=== PATIENT | female | born 1950 | race Caucasian/White ===

== ENCOUNTER → 2019-01-22 | Outpatient (CLI) | payer OTHER ==
[~2019-01-22] MED LIST: BENZ.5; BUPR150T2; CLOZ100; CONEST1.25; HYDACE10B PO; NAPR500 PO; VENL75ER
== END | disposition home or self-care (01) ==
LOC: LAB SHORT 07:45 → PLD 07:45
DX: B35.1 Tinea unguium (principal); L60.2 Onychogryphosis
CPT/HCPCS: 88305; 88312

== ENCOUNTER 2020-11-26 10:21 | Inpatient (IN) | payer OTHER, MEDICARE, SELFPAY ==
[~2020-11-26] VITALS: Ht 157.5 cm; Wt 66.7 kg
[~2020-11-26 10:21] MED LIST changes: -CONEST1.25
[2020-11-26 11:15] LABS: Hematocrit 35.3 % (33.0-51.0); Mean Corpuscular HGB 27.8 pg (26.0-34.0); Mean Corpuscular Volume 82 fL (80-100); Mean Platelet Volume 9.4 fL (9.1-12.4); Platelet Count 362 K/mm3 (150-400); RDW Coefficient Variation 13.8 % (11.7-14.2); RDW Standard Deviation 41.1 fL (35.1-46.3); Red Blood Cell Count 4.31 M/mm3 (3.80-5.20); White Blood Cell Count 6.23 K/mm3 (4.00-11.30)
[2020-11-26 11:32] LABS: Albumin, Blood 2.8 g/dL (3.4-5.0); Albumin/Globulin Ratio 0.7 (0.8-1.8); Bilirubin, Total 0.7 mg/dL (0.1-1.0); Bun/Creatinine Ratio 38.9 (12.0-20.0); Creatinine, Blood 1.44 mg/dL (0.40-1.00); Globulin, Blood 4.2 g/dL (2.2-4.0); Potassium, Blood 3.4 mmol/L (3.5-5.5)
[2020-11-26 11:53] LABS: BAND PERCENT MAN 44 % (0-8); BASOPHILS PERCENT MAN 0 % (0-2); EOSINOPHILS PERCENT MAN 0 % (0-6); LYMPHOCYTES PERCENT MAN 9 % (21-46); METAMYELOCYTE PERCENT MAN 2 % (0-0); MONOCYTES PERCENT MAN 2 % (4-13); MYELOCYTE PERCENT MAN 1 % (0-0); SEG NEUTROPHILS PERCENT MAN 42 % (41-73); TOTAL CELLS COUNTED 100
[2020-11-26 12:17] LABS: Source, Urine Clean Catch
[2020-11-26 12:19] LABS: Appearance, Urine Clear (Clear); Bilirubin, Urine Neg (Neg); Blood, Urine 1+ (Neg); Color, Urine Yellow (P-Yellow); Glucose Qualitative, Urine Neg (Neg); Ketones, Urine Neg (Neg); Leukocyte Esterase, Urine 1+ (Neg); Nitrite, Urine Neg (Neg); Protein, Urine 2+ (Neg); Urobilinogen, Urine NORM (Normal)
[2020-11-26] MEDS ORDERED: ALPRAZOLAM PO (12:34)
[2020-11-26] MEDS ORDERED: DULOXETINE HCL60 M1 PO (12:34)
[2020-11-26] MEDS ORDERED: OLANZAPINE20 M1 PO (12:36)
[2020-11-26] MEDS ORDERED: CONEST.625 PO (12:36)
[2020-11-26] MEDS ORDERED: CLON.1 PO (12:37)
[2020-11-26] MEDS ORDERED: OLAN10 PO (12:38)
[2020-11-26] MEDS ORDERED: Glucophage 850850 MG PO (12:38)
[2020-11-26] MEDS ORDERED: ATORVASTATIN CA20 MG PO (12:39)
[2020-11-26] MEDS ORDERED: PIOGLITAZONE HC15 MG PO (12:39)
[2020-11-26] MEDS ORDERED: GEMFIBROZIL600 MG PO (12:40)
[2020-11-26 12:43] LABS: Red Blood Cells, Urine 0-2 /hpf (0-2)
[2020-11-26 12:44] LABS: Bacteria Many /hpf; Squamous Epithelial Cells Few /hpf (Few); Transitional Epithelial Cells Few /hpf (0-Rare)
[2020-11-26] MEDS ORDERED: XANAX0.25 MG PO (13:52)
--- NOTE | 2020-11-26 18:28 | NUR ---
PT ARRIVED TO PCU 14 VIA GURNEY FROM ED. SHE IS A/0X3, PLEASANT AND COOPERATIVE WITH CARE, IS VERY UNCOMFORTABLE, 25MCG FENTANYL GIVEN WITH GOOD RELIEF, HER SPEECH IS VERY SOFT AND RASPY, LUNGS ARE CLEAR T/O, RESP EVEN AND UNLABORED, NO COUGH NOTED, HRR, TELE IN PLACE RUNNING SR PER MONITOR, SEE STRIP, NO EDEMA NOTED, PPP+2, CAP REFILL <3SEC, VS STABLE, AFEBRILE, IV SITE TO LAC AND RFA, NORMAL SALINE INFUSING, BT NOT AUSCULTATED, ABD DISTENDEND BUT SOFT, IS TENDER TO PALP, VOIDS VIA BSC, SKIN HAS SOME BRUISING NO OPEN AREAS, POLLY, ASKED HER TO SMILE I HEARD SHE HAS A L DROOP, SHE DID, NO DROOP NOTED, BUT STATES SHE HAS BELLS PALSEY, BIODIESEL PROCESS CONTROL TECHNICIAN ARE EQUAL, FEET ARE EQUAL, JENNA, ORIENTED TO ROOM LAYOUT AND CALL SYSTEM, CALL LIGHT IN REACH.
--- NOTE | 2020-11-27 04:45 | NUR ---
SHIFT SUMMARY ASSUMED CARE OF PT AT 1900. PT IS A/OX4. HEART SOUNDS REGULAR, LUNG SOUNDS HAVE SOME FINE CRACKLES AT THE BASES. PT IS ON 2L NC FOR SUPPORT WHILE NG TUBE IS IN, SATURATIONS AROUND 90-95%. PT IS A 1P SBA TO BSC, PT IS VERY WOBBLY ON HER FEET AND NEEDS GUIDENCE. PT HAS BRUISING ALL OVER. PT C/O PAIN FROM HER NG TUBE, MEDICATED PER EMAR. NG DRAINING BROWN LIQUID, ON INTERMITEN SUCION. CALL LIGHT IN REACH, BED IN LOWEST POSTION.
[2020-11-27 05:16] LABS: Hematocrit 31.3 % (33.0-51.0); Hemoglobin 10.3 g/dL (11.5-16.0); Mean Corpuscular HGB 27.2 pg (26.0-34.0); Mean Corpuscular HGB Conc 32.9 g/dL (31.5-36.5); Mean Corpuscular Volume 83 fL (80-100); Mean Platelet Volume 9.3 fL (9.1-12.4); Platelet Count 320 K/mm3 (150-400); RDW Standard Deviation 41.4 fL (35.1-46.3); Red Blood Cell Count 3.79 M/mm3 (3.80-5.20); White Blood Cell Count 14.21 K/mm3 (4.00-11.30)
[2020-11-27 05:36] LABS: Alanine Aminotransfer (ALT/SGP 13 U/L (12-78); Albumin, Blood 2.5 g/dL (3.4-5.0); Albumin/Globulin Ratio 0.7 (0.8-1.8); Alk Phos 63 U/L (50-136); Anion Gap 13 mmol/L (6-16); Aspartate Aminotrans (AST/SGOT 16 U/L (12-37); Bilirubin, Total 0.7 mg/dL (0.1-1.0); Blood Urea Nitrogen 36 mg/dL (8-24); Bun/Creatinine Ratio 40.5 (12.0-20.0); CO2, Blood 28 mmol/L (21-32); Calcium, Blood 8.3 mg/dL (8.5-10.1); Chloride, Blood 96 mmol/L (98-108); Creatinine, Blood 0.89 mg/dL (0.40-1.00); Globulin, Blood 3.7 g/dL (2.2-4.0); Glomerular Filtration Rate >60 (60-); Glucose, Blood 82 mg/dL (70-99); Potassium, Blood 2.6 mmol/L (3.5-5.5); Sodium, Blood 137 mmol/L (136-145); Total Protein, Blood 6.2 g/dL (6.4-8.2)
[2020-11-27 05:47] LABS: BAND PERCENT MAN 27 % (0-8); BASOPHILS PERCENT MAN 0 % (0-2); EOSINOPHILS ABSOLUTE MAN 0.42 K/mm3 (0.00-0.68); EOSINOPHILS PERCENT MAN 3 % (0-6); LYMPHOCYTES ABSOLUTE MAN 0.56 K/mm3 (0.84-5.20); LYMPHOCYTES PERCENT MAN 4 % (21-46); MONOCYTES ABSOLUTE MAN 0.42 K/mm3 (0.16-1.47); MONOCYTES PERCENT MAN 3 % (4-13); NEUTROPHILS ABSOLUTE MAN 12.78 K/mm3 (1.96-9.15); SEG NEUTROPHILS PERCENT MAN 63 % (41-73); TOTAL CELLS COUNTED 100
--- NOTE | 2020-11-27 14:34 | NUR ---
THIS RN ENTERED PT'S ROOM AND NOTED THAT SHE WAS CRYING. PT STATES THAT BECAUSE SHE IS NPO AT THIS TIME, SHE CAN'T HAVE HER NORMAL MEDICATIONS, WHICH INCLUDE ALPRAZOLAM, CLONIDINE, DULOXITINE, AND OLANZAPINE. DR US CONTACTED, ORDERS RECEIVED.
--- NOTE | 2020-11-27 17:37 | NUR ---
SHIFT SUMMARY PATIENT ALERT AND ORIENTED THROUGHOUT THIS SHIFT. PATIENT IS A STANDBY ASSIST TO THE BEDSIDE COMODE. AFTER MULTIPLE ATTEMPTS AT URINATING WITH LITTLE OUTPUT A BLADDER SCAN WAS PERFORMED WITH > 999 ML OF URINE SCANNED. STRAIGHT CATH ORDERED BY DOCTOR. >900 ML URINE OUTPUT. PATIENT CONTINUES ON LOW INTERMITENT SUCTION THROUGH NG TUBE. BROWN OUTPUT THROUGH NG TUBE, 650 ML EMPTIED THIS AFTERNOON. PATIENT ANXIOUS THIS AFTERNOON, MEDICATED PER EMAR. PATIENT CURRENTLY SITTING UP IN BED WATCHING TELEVISION.
[2020-11-28 04:02] LABS: Hematocrit 31.1 % (33.0-51.0); Hemoglobin 10.1 g/dL (11.5-16.0); Mean Corpuscular HGB 27.3 pg (26.0-34.0); Mean Corpuscular HGB Conc 32.5 g/dL (31.5-36.5); Mean Corpuscular Volume 84 fL (80-100); Mean Platelet Volume 9.3 fL (9.1-12.4); Platelet Count 319 K/mm3 (150-400); RDW Coefficient Variation 14.2 % (11.7-14.2); RDW Standard Deviation 43.6 fL (35.1-46.3); White Blood Cell Count 15.83 K/mm3 (4.00-11.30)
[2020-11-28 04:21] LABS: Albumin, Blood 2.2 g/dL (3.4-5.0); Anion Gap 11 mmol/L (6-16); Blood Urea Nitrogen 23 mg/dL (8-24); Bun/Creatinine Ratio 37.1 (12.0-20.0); CO2, Blood 28 mmol/L (21-32); Calcium, Blood 8.4 mg/dL (8.5-10.1); Chloride, Blood 102 mmol/L (98-108); Creatinine, Blood 0.62 mg/dL (0.40-1.00); Glomerular Filtration Rate >60 (60-); Glucose, Blood 129 mg/dL (70-99); Phosphorus, Blood 1.2 mg/dL (2.5-4.9); Potassium, Blood 2.8 mmol/L (3.5-5.5); Sodium, Blood 141 mmol/L (136-145)
--- NOTE | 2020-11-28 04:39 | NUR ---
SHIFT SUMMARY ASSUMED CARE OF PT AT 1900. PT IS A/OX4 BUT HAS TIMES OF CONFUSION. FOR EXAMPLE PT ULLED OFF O2 T/O THE NIGHT AND ASKED MULTIPLE TIMES WHAT THE TUBE WAS THAT WAS IN HER NOSE. HEART SOUNDS TACHY, TELE SHOWS SINUS TACH. LUNG SOUNDS DIMINISHED. ABD IS SOFT BUT SLIGHTLY TENDER. NG TUBE DRAINED ABOUT 700ML THIS NIGHT OF BROWN FLUIDS. CATHETER WAS PLACED DUE TO RETENTION. CATH DRAINING DARK CLEAR URINE. CALL LIGHT IN REACH, BED IN LOWEST POSITON.
--- NOTE | 2020-11-28 11:15 | NUR ---
PT PULLED HER SHERWOOD, NO BLEEDING NOTED
--- NOTE | 2020-11-28 14:42 | NUR ---
SHERWOOD CATH FOR RETENTION WAS PULLED BY PT THIS AM AT 1115. REPLACED FOR RETENTON AT THIS TIME WITH 14Fr, 10CC BALLOON, PT TOLERATED WELL
--- NOTE | 2020-11-28 17:48 | NUR ---
PT AND SPOUSE REPORTING FLATUS AT THIS TIME
[2020-11-29 03:54] LABS: Hematocrit 30.4 % (33.0-51.0); Mean Corpuscular HGB 27.5 pg (26.0-34.0); Mean Corpuscular HGB Conc 32.9 g/dL (31.5-36.5); Mean Corpuscular Volume 84 fL (80-100); Mean Platelet Volume 9.2 fL (9.1-12.4); Platelet Count 362 K/mm3 (150-400); RDW Coefficient Variation 14.2 % (11.7-14.2); RDW Standard Deviation 43.8 fL (35.1-46.3); Red Blood Cell Count 3.63 M/mm3 (3.80-5.20); White Blood Cell Count 11.25 K/mm3 (4.00-11.30)
[2020-11-29 04:18] LABS: Albumin, Blood 2.2 g/dL (3.4-5.0); Anion Gap 7 mmol/L (6-16); Blood Urea Nitrogen 17 mg/dL (8-24); Bun/Creatinine Ratio 26.4 (12.0-20.0); CO2, Blood 36 mmol/L (21-32); Calcium, Blood 8.4 mg/dL (8.5-10.1); Chloride, Blood 103 mmol/L (98-108); Creatinine, Blood 0.64 mg/dL (0.40-1.00); Glomerular Filtration Rate >60 (60-); Glucose, Blood 184 mg/dL (70-99); Phosphorus, Blood 1.8 mg/dL (2.5-4.9); Potassium, Blood 2.5 mmol/L (3.5-5.5); Sodium, Blood 146 mmol/L (136-145)
--- NOTE | 2020-11-29 05:09 | NUR ---
SHIFT SUMMARY NO ACUTE CHANGES THIS SHIFT. PT ALERT BUT PRESENTS WITH OCCASIONAL INSTANCES OF CONFUSION. BED ALARM IN PLACE. REMAINS IN SR. REMAINS ON RA WHILE AWAKE, PLACED ON 2LNC WHILE SLEEPING. NGT REMAINS TO LIT / DARK BROWN OUTPUT NOTED. PT STATES INSTANCE OF FLATUS TONIGHT. D51/2 NS CONTINUES TO INFUSE PER EMAR. HAS DENIED ABD PAIN THIS SHIFT. ATIVAN GIVEN FOR ANXIETY, SUCCESFUL. OTHERWISE PT RESTING IN BED QUIETELY. WILL CONTINUE TO MONITOR UNTIL SHIFT CHANGE.
--- NOTE | 2020-11-29 10:29 | NUR ---
PT IN PROCEDURE W/XRAY PT IN PROCEDURE WITH X RAY THIS AM. INSTRUCTED TO NOT RECONNECT PT TO SUCTION AT THIS TIME D/T CONTRAST. PT BACK FROM IMAGING, WILL RETURN IN 1 HOUR.
--- NOTE | 2020-11-29 13:56 | NUR ---
UPDATE SPOKE WITH AKIRA FROM IMAGING. PT STILL UNABLE TO BE ATTACHED TO SUCTION D/T IMAGING TESTING. NEXT SCHEDULED XRAY IS AT 1505. PT COMOFORTABLE AT THIS TIME. REPORTS NO ABD PAIN.
--- NOTE | 2020-11-29 15:23 | NUR ---
UPDATE FROM IMAGING INSTRUCTED TO KEEP PT NPO AND OFF OF SUCTION AT THIS TIME. NEXT SCAN AT 1800.
--- NOTE | 2020-11-29 17:55 | NUR ---
SHIFT SUMMARY PT ALERT AND ORIENTED X 4. FORGETFUL AT TIMES. BED ALARM IN PLACE FOR PT SAFETY. PT TO XRAY T/O SHIFT. NG TUBE LOCKED AND NOT TO SUCTION D/T IMAGING. SEE NOTES. HR STABLE. BP STABLE. OXYGEN SATURATION MAINTAINED ABOVE 92% ON 2 L OF OXYGEN VIA NC. PT ABLE TO TURN SELF IN BED NEEDED. SBA TO COMMODE. SHERWOOD PATENT AND DRAINING. PT DAUGHTER AT BEDSIDE. NO CP OR PRESSURE REPORTED. WILL CONTINUE TO MONITOR UNTIL REPORT GIVEN TO NIGHTSHIFT RN.
--- NOTE | 2020-11-29 19:26 | NUR ---
UPDATE SPOKE WITH MAINTENANCE WORKER PRIOR TO END OF SHIFT REGARDING PT HAVING NG TUBE TO LOW INTERMITTENT SUCTION. WAS INFORMED PT WILL HAVE FOLLOW UP SCAN IN AM BUT SUCTION WILL NOT AFFECT THE TEST RESULTS AT THIS POINT. PT HAS NG TUBE TO LOW INTERMITTENT SUCTION AT END OF SHIFT.
--- NOTE | 2020-11-30 05:33 | NUR ---
SHIFT SUMMARY NO ACUTE CHANGES THIS SHIFT. VSS. REMAINS AXO / FORGETFUL. REMAINS SR/ST. REMAINS ON 2LNC, LUNGS CLEAR T/O. NGT TO LIS UPON SHIFT START AFTER RECEIVING WORD THAT THE LAST SECTION OF THE SBFT TEST THIS AM WOULD NOT BE ALTERED BY HAVING SUCTION TURNED BACK ON. PT HAS HAD >2000 OUT THIS SHIFT TO NGT, DARK BROWN LIQUID. SHERWOOD REMAINS PATENT AND DRAINING TO GRAVITY. D51/2 NS 20KCL INFUSING PER EMAR. BED ALARM IN PLACE. WILL CONTINUE TO MONITOR UNTIL SHIFT CHANGE.
[2020-11-30 08:50] LABS: Albumin, Blood 2.5 g/dL (3.4-5.0); Anion Gap 5 mmol/L (6-16); Blood Urea Nitrogen 20 mg/dL (8-24); Bun/Creatinine Ratio 31.9 (12.0-20.0); CO2, Blood 41 mmol/L (21-32); Calcium, Blood 9.1 mg/dL (8.5-10.1); Chloride, Blood 101 mmol/L (98-108); Creatinine, Blood 0.63 mg/dL (0.40-1.00); Glomerular Filtration Rate >60 (60-); Glucose, Blood 167 mg/dL (70-99); Magnesium, Blood 2.3 mg/dL (1.6-2.4); Potassium, Blood 2.8 mmol/L (3.5-5.5); Sodium, Blood 147 mmol/L (136-145)
[2020-11-30 11:49] LABS: Influenza A, PCR NEGATIVE (NEGATIVE); Influenza B, PCR NEGATIVE (NEGATIVE); Resp Syncytial Virus, PCR NEGATIVE (NEGATIVE); SARS-Cov-2 (COVID-19) PCR, MMC NEGATIVE (NEGATIVE)
--- NOTE | 2020-11-30 15:18 | NUR ---
TAKEN TO SURGERY BY OR STAFF. NG IN PLACE, SHERWOOD IN PLACE, A/A/OX3 WITH INTERMITANT CONFUSION.
[2020-11-30 16:15] LABS: Anion Gap 4 mmol/L (6-16); Blood Urea Nitrogen 20 mg/dL (8-24); Bun/Creatinine Ratio 28.2 (12.0-20.0); CO2, Blood 39 mmol/L (21-32); Calcium, Blood 8.5 mg/dL (8.5-10.1); Chloride, Blood 104 mmol/L (98-108); Creatinine, Blood 0.71 mg/dL (0.40-1.00); Glomerular Filtration Rate >60 (60-); Glucose, Blood 174 mg/dL (70-99); Potassium, Blood 2.8 mmol/L (3.5-5.5); Sodium, Blood 147 mmol/L (136-145)
--- NOTE | 2020-11-30 16:28 | NUR ---
BROUGHT TO [facility] AND ADMISSION STARTED REDICEIVED ORDERS FROM ANNESTHESIA AND CARRIED THEM OUT. LAB DRAW RESULTS FOUND OUT AND REPORTED TO ANNESTHESIOLOGIST. PATIENT COOPERATEIVE WITH ADMISSION AT BED SIDE
--- NOTE | 2020-11-30 17:02 | NUR ---
11/30/20 1702 Javan Castillo PATIENT ON SCHEDULED ANTIBIOTICS. ARRIVED TO OR WITH NG TUBE AND SHERWOOD
--- NOTE | 2020-11-30 17:39 | NUR ---
SHIFT SUMMARY; REMAINS IN OR FOR SBO. A/A/OX3 DURING SHIFT WITH INTERMITANT CONFUSION. SPOUSE STATES HAS NOT HAD PHYS MEDS IN A WEEK AND THIS IS TYPICAL DUE TO UNDERLYING SCHIZOPHRENIA. NG TUBE IN PLACE DURING LIS DURING SHIFT DRAININED 800ML DARK GREEN GASTRIC CONTENTS FROM CANISTER. SHERWOOD IN PLACE DRAINING STRAW COLORED URINE. POTASSIUM INFUSING WITH D51/2 NS WITH KCL AT WHEN TAKEN TO OR.
--- NOTE | 2020-11-30 18:18 | NUR ---
REPORT GIVEN TO SURGICAL FLOOR RN TO ASSUME CARE.
--- NOTE | 2020-11-30 18:30 | NUR ---
PT TRANSFERRED TO ROOM FOLLOWING RECOVERY, A/O X 4, FLAT AFFECT, BASELINE. POST OP VS COMMENCED AND STABLE. PT DENIES N/V, RATES PAIN AT 6/10, MEDICATED PER MAR, ORIENTED TO CALL LIGHT, BED IN LOWEST POSITION, BED RAILS UP X 2, CALL LIGHT WITHIN REACH
[2020-12-01 04:33] LABS: Anion Gap 3 mmol/L (6-16); Blood Urea Nitrogen 18 mg/dL (8-24); Bun/Creatinine Ratio 24.3 (12.0-20.0); CO2, Blood 38 mmol/L (21-32); Chloride, Blood 108 mmol/L (98-108); Creatinine, Blood 0.74 mg/dL (0.40-1.00); Glomerular Filtration Rate >60 (60-); Glucose, Blood 134 mg/dL (70-99); Potassium, Blood 3.2 mmol/L (3.5-5.5); Sodium, Blood 149 mmol/L (136-145)
--- NOTE | 2020-12-01 05:12 | NUR ---
SHIFT SUMMARY: LURDES AROUSES EASILY AND RESPONDS APPROPRIATELY. VSS, NO ACUTE EVENTS OVERNIGHT. NG TUBE TO LIS. SHE STATES SHE IS HUNGRY AND THRISTY AND WANTS TO START DRINKING WATER, ENCOURAGED HER TO DISCUSS WITH THE DOCTOR WHEN HE ROUNDS TODAY. SHERWOOD IN PLACE. IV TO L AC PATENT. NICHOLE TO MIDLINE WITH SCANT DRAINAGE UNCHANGED FROM BEGINNING OF SHIFT. SHE WAS ENCOURAGED TO USE THE CALL LIGHT TO ALERT STAFF TO HER NEEDS. BED ALARM ON FOR SAFETY. SHE IS LYING IN BED WITH HER CALL LIGHT IN REACH. WILL REPORT TO DAY SHIFT RN.
--- NOTE | 2020-12-01 12:38 | NUR ---
Spiritual care visit conducted. Patient is sitting on a chair and alert. Patient tells me about her surgery and how grateful she is that it went well. Demetrion talks about her family and her longing to be home again. Patient asks for prayer that her body will heal well. I provide therapeutic listening and and prayer. Patient responds well and voices appreciation for the spiritual care visit.
--- NOTE | 2020-12-01 18:09 | NUR ---
SHIFT SUMMARY PT TOLERATING ICE CHIPS. NGT WAS REMOVED THIS AM. PT BEEN UP AND AMBULATED IN HALLWAY WITH ASSIST MULT TIMES. SHERWOOD IN PLACE. PT BEEN ASSISTED WITH ADL'S PRN. PT MED PER ORDERS FOR KCL AND ABX. PT DENIED DIFFICULTY WITH IVF/MEDICATIONS. PT BEEN ASSISTED WITH ADL'S AND AMBULATING. TAB ALARM IN PLACE. CALL LIGHT IN REACH, PT USING WELL.
[2020-12-02 04:26] LABS: Hematocrit 30.2 % (33.0-51.0); Hemoglobin 9.4 g/dL (11.5-16.0); Mean Corpuscular HGB 27.2 pg (26.0-34.0); Mean Corpuscular HGB Conc 31.1 g/dL (31.5-36.5); Mean Corpuscular Volume 88 fL (80-100); Mean Platelet Volume 8.9 fL (9.1-12.4); Platelet Count 358 K/mm3 (150-400); RDW Coefficient Variation 14.6 % (11.7-14.2); RDW Standard Deviation 46.7 fL (35.1-46.3); Red Blood Cell Count 3.45 M/mm3 (3.80-5.20); White Blood Cell Count 10.25 K/mm3 (4.00-11.30)
[2020-12-02 04:49] LABS: Anion Gap 5 mmol/L (6-16); Blood Urea Nitrogen 16 mg/dL (8-24); Bun/Creatinine Ratio 25.7 (12.0-20.0); CO2, Blood 31 mmol/L (21-32); Calcium, Blood 7.4 mg/dL (8.5-10.1); Chloride, Blood 108 mmol/L (98-108); Creatinine, Blood 0.62 mg/dL (0.40-1.00); Glomerular Filtration Rate >60 (60-); Glucose, Blood 122 mg/dL (70-99); Magnesium, Blood 1.9 mg/dL (1.6-2.4); Phosphorus, Blood 1.8 mg/dL (2.5-4.9); Sodium, Blood 144 mmol/L (136-145)
--- NOTE | 2020-12-02 06:26 | NUR ---
SHIFT SUMMARY: LURDES AROUSES EASILY AND RESPONDS APPROPRIATELY. VSS, NO ACUTE EVENTS OVERNIGHT. SHE REPORTS PASSING GAS THROUGHOUT THE NIGHT. SHE IS TOLERATING ICE CHIPS WELL, REPORTS ADEQUATE PAIN RELIEF WITH 50 MCG OF FENTANYL. IV TO RADHA PATENT. NICHOLE TO MIDLINE WITH NO NEW DRAINAGE NOTED. REPEATING AM LABS FOR CONFIRMATION OF RESULTS. SHE IS A STANDBY ASSIST, TRANSFERS AND AMBULATES WITHOUT DIFFICULTY. SHERWOOD PATENT, STAT LOCK IN PLACE, BAG HANGING OFF OF FLOOR. SHE IS LYING IN BED WITH THE CALL LIGHT IN REACH. WILL REPORT TO DAY SHIFT RN.
[2020-12-02 07:09] LABS: Hematocrit 30.6 % (33.0-51.0); Hemoglobin 9.9 g/dL (11.5-16.0)
[2020-12-02 07:24] LABS: Albumin, Blood 1.9 g/dL (3.4-5.0); Anion Gap 6 mmol/L (6-16); Blood Urea Nitrogen 15 mg/dL (8-24); Bun/Creatinine Ratio 27.5 (12.0-20.0); CO2, Blood 27 mmol/L (21-32); Calcium, Blood 7.2 mg/dL (8.5-10.1); Chloride, Blood 109 mmol/L (98-108); Creatinine, Blood 0.55 mg/dL (0.40-1.00); Glomerular Filtration Rate >60 (60-); Glucose, Blood 113 mg/dL (70-99); Magnesium, Blood 1.8 mg/dL (1.6-2.4); Phosphorus, Blood 1.8 mg/dL (2.5-4.9); Potassium, Blood 3.1 mmol/L (3.5-5.5); Sodium, Blood 142 mmol/L (136-145)
--- NOTE | 2020-12-02 09:22 | NUR ---
DR ALMENDAREZ RECENTLY HERE, REPORTS TO Anirudh/Rashawn SHERWOOD.
--- NOTE | 2020-12-02 11:13 | NUR ---
PT WORKING WITH OT, DR LAM HERE TO SEE PT.
--- NOTE | 2020-12-02 15:16 | NUR ---
PT IV INFILTRATED RECENTLY. DISCUSSED WITH ASSISTANT BASEBALL COACH E.A.. OTHER RN ASSIST WITH POWER-GLIDE.
--- NOTE | 2020-12-02 15:45 | NUR ---
SHIFT SUMMARY PT TOLERATING C.L. DIET. PT AMBULATING IN HALLWAY WITH MASK, WALKER, SBA. PT CALL LIGHT IN REACH, PT USING APPR. PT BED ALARM IN REACH. PT REPORTED TO VOID SMALL AMT AFTER SHOWER TODAY. IV TO RAC AREA INFILTRATED TODAY WHICH RN PLACED WARM BLANKET AND ELEVATED ARM ON PILLOW. POWER-GLIDE PLACED BY OTHER RN TODAY. FAMILY IN TO SEE PT TODAY. PT BEEN ASSISTED WITH ADL'S PRN. CEDRICK RUIZ TO SEE PT TODAY. BED ALARM IN PLACE.
--- NOTE | 2020-12-02 15:51 | NUR ---
OTHER IVIS Jay GIVEN REPORT AND IS ASSUMING CARE OF PT.
--- NOTE | 2020-12-02 17:31 | NUR ---
SHIFT SUMMARY NO ACUTE CHANGES SINCE ASSUMING CARE. PATIENT IS ALERT AND ABLE TO MAKE HER NEEDS KNOWN. PROVIDED PRN PAIN MEDS X1. POWERGLIDE INFUSING PER ORDERS. AMBULATED WITH BEHAVIORAL THERAPIST X1. BED LOW AND LOCKED, CALL LIGHT WITHIN REACH, BED ALARM SET. WILL CONT TO MONITOR AND PROVIDE REPORT TO NOC RN.
--- NOTE | 2020-12-02 22:45 | NUR ---
AT APPROX. 2230 TODAY PATIENT PULLED OUT DOBHOFF FROM NOSE. HOSPITALIST NOTIFIED. WILL WAIT TO POSSIBLY REPLACE TUBING IN AM. PATIENT HAS CALL LIGHT WITHIN REACH AND HAS BED ALARM ON.
--- NOTE | 2020-12-03 02:59 | NUR ---
SHIFT SUMMARY: SMALL BOWEL OBSTRUCTION PATIENT IS ALERT AND ORIENTED X3 WHILE AWAKE. SHE HAS BEEN ON AND OFF SLEEPING THROUGHOUT SHIFT DUE TO PAIN. PAIN IS MANAGED WITH 50 MCG OF FENTANYL IV. VS ARE WNL ON RA. SHE IS ABLE TO AMBULATE WITH WALKER AND GAIT BELT WITH ONE PERSON MINIMAL ASSIST. SHE CALLS APPROPRIATELY. SHE HAS HAD 4 OR 5 BM SO FAR DURING THE SHIFT THAT ARE LOOSE, BUT THE MOST RECENT TIME WAS MOSTLY URINE. SHE IS ABLE TO PASS GAS. PATIENT IS TOLERATING PO INTAKE OF CLEARS. CALL LIGHT WITHIN REACH. THE PLAN IS TO CONTINUE PT AND TO POSSIBLY FIND OUT THE SURGERY RECOMMENDATIONS FOR DISCHARGE.
[2020-12-03 10:25] LABS: Albumin, Blood 1.9 g/dL (3.4-5.0); Anion Gap 7 mmol/L (6-16); Blood Urea Nitrogen 5 mg/dL (8-24); Bun/Creatinine Ratio 9.5 (12.0-20.0); CO2, Blood 26 mmol/L (21-32); Calcium, Blood 7.3 mg/dL (8.5-10.1); Chloride, Blood 107 mmol/L (98-108); Creatinine, Blood 0.53 mg/dL (0.40-1.00); Glomerular Filtration Rate >60 (60-); Glucose, Blood 183 mg/dL (70-99); Phosphorus, Blood 1.7 mg/dL (2.5-4.9); Potassium, Blood 2.7 mmol/L (3.5-5.5); Sodium, Blood 140 mmol/L (136-145)
--- NOTE | 2020-12-03 19:23 | NUR ---
SHIFT SUMMARY PT IS POD#3 FROM LYSIS OF ADHESIONS WITH DR. ALMENDAREZ. PT HAS BEEN AMBULATING IN THE HALWAY WITH SBA. SHE IS TOLERATING REGULAR DIET AND PASSING STOOL. PO PAIN MEDICATION STARTED THIS EVENING. PT IS GETTING ELECTROLYTE REPLACEMENTS THIS EVENING. IF STABLE PT MAY DISCHARGE TOMORROW. VSS. REPORT GIVEN TO FRANK LANGSTON.
--- NOTE | 2020-12-04 02:59 | NUR ---
SHIFT SUMMARY POD4 LYSIS OF ADHESIONS, TOLERATING PO INTAKE, TRANSFERS INDEPENDENTLY TO BSC, VOIDING/BM WELL, PAIN PARTIALLY CONTROLLED PER EMAR, WILL RECOMMEND DISCUSSING DOSE MODIFICATION OR CHANGING PAIN MEDICATION IN THE MORNING (WILL CONTACT DR DIRECTLY IF UNABLE TO MANAGE PAIN W/ CURRENT ORDERS/MEDS). NO ACUTE EVENTS THIS SHIFT. CALL LIGHT IN REACH, WILL CONTINUE TO MONITOR AND REPORTO TO ONCOMING DAY RN.
[2020-12-04 04:58] LABS: BASOPHILS ABSOLUTE AUTO 0.04 K/mm3 (0.00-0.23); BASOPHILS PERCENT AUTO 1 % (0-2); EOSINOPHILS ABSOLUTE AUTO 0.12 K/mm3 (0.00-0.68); EOSINOPHILS PERCENT AUTO 1 % (0-6); Hematocrit 29.3 % (33.0-51.0); Hemoglobin 9.6 g/dL (11.5-16.0); IMMATURE GRAN ABSOLUTE AUTO 0.13 K/mm3 (0.00-0.10); IMMATURE GRAN PERCENT AUTO 2 % (0-1); LYMPHOCYTES ABSOLUTE AUTO 1.32 K/mm3 (0.84-5.20); LYMPHOCYTES PERCENT AUTO 16 % (21-46); MONOCYTES ABSOLUTE AUTO 0.42 K/mm3 (0.16-1.47); MONOCYTES PERCENT AUTO 5 % (4-13); Mean Corpuscular HGB 27.6 pg (26.0-34.0); Mean Corpuscular HGB Conc 32.8 g/dL (31.5-36.5); Mean Corpuscular Volume 84 fL (80-100); NEUTROPHILS PERCENT AUTO 76 % (41-73); NRBC ABSOLUTE 0.02 K/mm3 (0.00-0.02); NRBC Auto 0.2 /100 WBC (0.0-0.2); RDW Coefficient Variation 14.7 % (11.7-14.2); RDW Standard Deviation 44.5 fL (35.1-46.3); Red Blood Cell Count 3.48 M/mm3 (3.80-5.20); White Blood Cell Count 8.53 K/mm3 (4.00-11.30)
[2020-12-04 04:59] LABS: Mean Platelet Volume 9.5 fL (9.1-12.4); Platelet Count 401 K/mm3 (150-400)
[2020-12-04 05:00] LABS: Albumin, Blood 1.9 g/dL (3.4-5.0); Anion Gap 7 mmol/L (6-16); Blood Urea Nitrogen 3 mg/dL (8-24); Bun/Creatinine Ratio 5.1 (12.0-20.0); CO2, Blood 25 mmol/L (21-32); Calcium, Blood 7.8 mg/dL (8.5-10.1); Chloride, Blood 110 mmol/L (98-108); Creatinine, Blood 0.59 mg/dL (0.40-1.00); Glomerular Filtration Rate >60 (60-); Glucose, Blood 125 mg/dL (70-99); Magnesium, Blood 1.9 mg/dL (1.6-2.4); Phosphorus, Blood 3.7 mg/dL (2.5-4.9); Sodium, Blood 142 mmol/L (136-145)
--- NOTE | 2020-12-04 16:11 | NUR ---
PAIN PT CONSISTANTLY RATES HER BACK PAIN AT 8/10. PT WAS GIVEN A HEATING PAD AND 5MG OXYCODONE. SHE REPORTS HER BACK FEELS BETTER BUT CONTINUES TO RATE HER PAIN AT 8/10. SHE ALSO DECLINED A SECOND OXYCODONE TABLET. WILL CONTINUE TO MONITOR.
--- NOTE | 2020-12-04 17:46 | NUR ---
SHIFT SUMMARY PT IS POD#4 FOR LYSIS OF ADHESIONS. PT HAS BEEN A SBA WHILE OOB. PT HAS HAD DIFFICULTY VOIDING THIS SHIFT, SHE WAS RETAINING URINE AND 800ML WAS EMPTIED WITH STRAIGHT CATH. PT REPORTED SHE HAD NOT PASSED FLATUS SINCE YESTERDAY, SHE HAS BEEN ABLE TO PASS FLATUS MULTIPLE TIMES THIS EVENING. PT REPORTS INCREASED PAIN IN HER BACK, SHE GOT SOME RELIEF FROM KPAD AND INCREASED OXYCODONE. PT DENIES FEELING ANXIOUS BUT APPEARS ANXIOUS WHEN INTERACTING WITH STAFF AND WITH REGARDS TO CARE. VSS. WILL CONTINUE TO MONITOR.
[2020-12-05 04:37] LABS: Albumin, Blood 1.9 g/dL (3.4-5.0); Anion Gap 5 mmol/L (6-16); Blood Urea Nitrogen 5 mg/dL (8-24); Bun/Creatinine Ratio 9.4 (12.0-20.0); CO2, Blood 27 mmol/L (21-32); Chloride, Blood 109 mmol/L (98-108); Creatinine, Blood 0.53 mg/dL (0.40-1.00); Glomerular Filtration Rate >60 (60-); Glucose, Blood 117 mg/dL (70-99); Magnesium, Blood 1.7 mg/dL (1.6-2.4); Phosphorus, Blood 2.5 mg/dL (2.5-4.9); Potassium, Blood 3.5 mmol/L (3.5-5.5); Sodium, Blood 141 mmol/L (136-145)
--- NOTE | 2020-12-05 06:09 | NUR ---
SHIFT SUMMARY POD5 LYSIS OF ADHESIONS, A/O X4, VSS, REPORTS CONSISTENLY HIGH PAIN IN ABD AND BACK, RETAINING URINE SINCE INCREASE IN PAIN MEDICATION, REDUCED PAIN MEDS AND DISCUSSED THIS W/ PT WHO SEEMED RECEPTIVE, WILL SUGGEST CHANGING MEDS IN THE MORNING. TRANSFERS WELL FROM BED TO BSC, PASSING FLATUS, MINIMAL URINE OUTPUT, STRAIGHT CATH ONCE THIS SHIFT, PT TOLERATED IT WELL. NO ACUTE EVENTS THIS SHIFT. CALL LIGHT IN REACH, WILL CONTINUE TO MONITOR AND REPORT TO ONCOMING DAY RN.
--- NOTE | 2020-12-05 11:42 | NUR ---
DISCUSSED GIVING PT XANAX EARLIER, DR REPORTS TO NOT GIVE ONE TIME DOSE SHE WAS ALREADY MEDICATED. DISCUSSED PT STATING SHE IS FEELING MUCH BETTER, SHE FEELS LESS ANXIOUS AND HER PAIN WAS 4/10 WHICH TO HER IS TOLERABLE.
--- NOTE | 2020-12-05 15:15 | NUR ---
DR ALMENDAREZ RECENTLY HERE TO SEE PT.
[2020-12-05] MEDS ORDERED: AMLO5 PO (15:41)
[2020-12-05] MEDS ORDERED: DOC250 PO (15:42)
[2020-12-05] MEDS ORDERED: OXAYDO5 M1 PO (15:54)
[2020-12-05] MEDS ORDERED: MIRALAX17 GM PO (15:56)
[2020-12-05] MEDS ORDERED: VISBIOME PROBIOTIC PO (15:59)
--- NOTE | 2020-12-05 17:25 | NUR ---
DISCHARGE: PT EATING AND DRINKING, VOIDING, PASSING GAS. PT/FAMILY REPORTS UNDERSTANDING OF DISCHARGE INSTRUCTIONS INCLUDING MEDICATION, USING FWW. PT/FAMILY SENT WITH SCRIPTS AND PAPERWORK. PT GETTING RIDE HOME FROM FAMILY. PT FAMILY REPORTS STAYING WITH PT. PT SENT WITH BELONGINGS. PT GIVEN W/C RIDE TO CAR WITH MASK IN PLACE.
[2021-04-06] MEDS ORDERED: DOK100 M2 PO (13:36)
[2021-04-06] MEDS ORDERED: CONSTULOSE10 GM/155 PO (13:36)
[2021-04-06] MEDS ORDERED: FENT200LOZ MM (13:37)
[2021-04-06] MEDS ORDERED: HUMALOG KW100 UNIT/1 SC (13:38)
[2021-04-06] MEDS ORDERED: OXYC5 (13:38)
[2021-04-06] MEDS ORDERED: CONEST.625 PO (13:38)
[2021-04-06] MEDS ORDERED: PANT20 PO (13:38)
== END 2020-12-05 17:26 | disposition home health service (06) | DRG 853 ==
LOC: ER 10:21 → PCU 13:33 → SURS 13:33 → ERHOLD 13:33 → PCU 17:04 → SURS 11-30 18:19
PROVIDERS: Anesthesiology; Internal Medicine; Physician Assistant; Surgery; ADMIT Internal Medicine
PROC: 0DN80ZZ Release Small Intestine, Open Approach (ICD-10-PCS; 2020-11-30)
PROC: 0UN00ZZ Release Right Ovary, Open Approach (ICD-10-PCS; principal; 2020-11-30 15:30)
DX: A41.51 Sepsis due to Escherichia coli [E. coli] (principal); J96.01 Acute respiratory failure with hypoxia; J69.0 Pneumonitis due to inhalation of food and vomit; K56.50 Intestinal adhesions [bands], unspecified as to partial versus complete obstruction; E87.1 Hypo-osmolality and hyponatremia; N17.9 Acute kidney failure, unspecified; E87.0 Hyperosmolality and hypernatremia; N39.0 Urinary tract infection, site not specified; Z20.822 Contact with and (suspected) exposure to COVID-19; E87.8 Other disorders of electrolyte and fluid balance, not elsewhere classified; F32.9 Major depressive disorder, single episode, unspecified; E11.9 Type 2 diabetes mellitus without complications; R33.8 Other retention of urine; F41.9 Anxiety disorder, unspecified; E87.6 Hypokalemia; E83.39 Other disorders of phosphorus metabolism; G47.00 Insomnia, unspecified; K59.00 Constipation, unspecified; E78.5 Hyperlipidemia, unspecified
CPT/HCPCS: 0241U; 36415; 51701; 51702; 70450; 71045; 74177; 74250; 80048; 80053; 80069; 81001; 82330; 82947; 83605; 83735; 83880; 85014; 85018; 85025; 85027; 87040; 87077; 87086; 87186; 93005; 93010; 96365-59; 96375; 97116; 97161; 97165; 97535; 99285-25; A9270; C9113; J0295; J0610; J1100; J1885; J2060; J2405; J2704; J2710; J3010; J3475; J3480; J7030; J7042; J7050; J7060; J7070; J7121; P9046; Q9967

== ENCOUNTER 2021-01-27 10:00 | Emergency (ER) | payer OTHER ==
[~2021-01-27] VITALS: Ht 160 cm; Wt 64.9 kg
[~2021-01-27 10:00] MED LIST changes: +ALPRAZOLAM PO; +AMLO5 PO; +ATORVASTATIN CA20 MG PO; +CLON.1 PO; +CONEST.625 PO; +DOC250 PO; +DULOXETINE HCL60 M1 PO; +GEMFIBROZIL600 MG PO; +Glucophage 850850 MG PO; +MIRALAX17 GM PO; +OLAN10 PO; +OLANZAPINE20 M1 PO; +OXAYDO5 M1 PO; +PIOGLITAZONE HC15 MG PO; +VISBIOME PROBIOTIC PO; +XANAX0.25 MG PO
[2021-01-27] MEDS ORDERED: LOPID PO (10:19)
[2021-01-27] MEDS ORDERED: METF500 PO (10:19)
[2021-01-27] MEDS ORDERED: DULO60 PO (10:20)
[2021-01-27] MEDS ORDERED: OLAN10 PO (10:20)
[2021-01-27] MEDS ORDERED: Aspir 8181 MG PO (10:20)
[2021-01-27] MEDS ORDERED: ATOR20 PO (10:21)
[2021-01-27] MEDS ORDERED: PIOG15 PO (10:21)
[2021-01-27] MEDS ORDERED: Norvasc5 MG PO (10:21)
[2021-01-27] MEDS ORDERED: CLON.1 PO (10:22)
[2021-01-27] MEDS ORDERED: ALPR1 PO (10:22)
[2021-01-27] MEDS ORDERED: LACT10SY PO (14:28)
[2021-04-06] MEDS ORDERED: CONSTULOSE10 GM/155 PO (13:36)
[2021-04-06] MEDS ORDERED: DOK100 M2 PO (13:36)
[2021-04-06] MEDS ORDERED: FENT200LOZ MM (13:37)
[2021-04-06] MEDS ORDERED: OXYC5 (13:38)
[2021-04-06] MEDS ORDERED: CONEST.625 PO (13:38)
[2021-04-06] MEDS ORDERED: PANT20 PO (13:38)
[2021-04-06] MEDS ORDERED: HUMALOG KW100 UNIT/1 SC (13:38)
== END 2021-01-27 14:59 | disposition home or self-care (01) ==
LOC: ER 10:00
DX: K59.00 Constipation, unspecified (principal); Z79.82 Long term (current) use of aspirin; Z79.899 Other long term (current) drug therapy; Z79.84 Long term (current) use of oral hypoglycemic drugs; Z88.6 Allergy status to analgesic agent; Z87.891 Personal history of nicotine dependence
CPT/HCPCS: 74176; 99283-25; A9270

== ENCOUNTER 2021-04-13 08:33 | Day surgery (SDC) | payer OTHER ==
[~2021-04-13] VITALS: Ht 157.5 cm; Wt 61.1 kg
[~2021-04-13 08:33] MED LIST changes: +ALPR1 PO; +ATOR20 PO; +Aspir 8181 MG PO; +CONSTULOSE10 GM/155 PO; +DOK100 M2 PO; +DULO60 PO; +FENT200LOZ MM; +HUMALOG KW100 UNIT/1 SC; +LACT10SY PO; +LOPID PO; +METF500 PO; +Norvasc5 MG PO; +OXYC5; +PANT20 PO; +PIOG15 PO
[2021-04-13] MEDS ORDERED: ASPI81CH (08:52)
== END 2021-04-13 11:02 | disposition home or self-care (01) ==
LOC: ORSCSDS 08:33
PROVIDERS: Student in an Organized Health Care Education/Training Program
PROC: 0DBK8ZX Excision of Ascending Colon, Via Natural or Artificial Opening Endoscopic, Diagnostic (ICD-10-PCS; principal; 2021-04-13 10:00)
PROC: 0DBL8ZX Excision of Transverse Colon, Via Natural or Artificial Opening Endoscopic, Diagnostic (ICD-10-PCS; principal; 2021-04-13 10:00)
PROC: 0DBP8ZX Excision of Rectum, Via Natural or Artificial Opening Endoscopic, Diagnostic (ICD-10-PCS; principal; 2021-04-13 10:00)
DX: R15.0 Incomplete defecation (principal); K63.5 Polyp of colon; D12.2 Benign neoplasm of ascending colon; K62.1 Rectal polyp; K64.8 Other hemorrhoids; E11.9 Type 2 diabetes mellitus without complications; I10 Essential (primary) hypertension; E78.5 Hyperlipidemia, unspecified; Z79.84 Long term (current) use of oral hypoglycemic drugs; Z79.899 Other long term (current) drug therapy
CPT/HCPCS: 82947; 88305; J2405; J2704; J7120

== ENCOUNTER 2022-01-21 10:06 | Emergency (ER) | payer OTHER ==
[~2022-01-21] VITALS: Ht 162.6 cm; Wt 68.0 kg
[~2022-01-21 10:06] MED LIST changes: +ASPI81CH
[2022-01-21] MEDS ORDERED: MAGCIT300 PO (12:24)
== END 2022-01-21 12:50 | disposition home or self-care (01) ==
LOC: ER 10:06
DX: K59.00 Constipation, unspecified (principal); E11.9 Type 2 diabetes mellitus without complications; I10 Essential (primary) hypertension; E78.5 Hyperlipidemia, unspecified; Z79.4 Long term (current) use of insulin; Z79.899 Other long term (current) drug therapy; Z79.82 Long term (current) use of aspirin
CPT/HCPCS: 74018

== ENCOUNTER 2022-07-15 10:20 | Emergency (ER) | payer OTHER ==
[~2022-07-15] VITALS: Ht 160 cm; Wt 61.2 kg
[~2022-07-15 10:20] MED LIST changes: +MAGCIT300 PO
[2022-07-15 11:20] LABS: Source, Urine Fem Cath
[2022-07-15 11:26] LABS: Appearance, Urine Hazy (Clear); Bilirubin, Urine Neg (Neg); Blood, Urine 1+ (Neg); Color, Urine Yellow (P-Yellow); Glucose Qualitative, Urine Neg (Neg); Ketones, Urine Neg (Neg); Leukocyte Esterase, Urine 1+ (Neg); Nitrite, Urine Neg (Neg); Protein, Urine 1+ (Neg); Urobilinogen, Urine NORM (Normal)
[2022-07-15 11:32] LABS: Alanine Aminotransfer (ALT/SGP 15 U/L (12-78); Albumin, Blood 3.1 g/dL (3.4-5.0); Alk Phos 67 U/L (50-136); Anion Gap 8 mmol/L (6-16); Aspartate Aminotrans (AST/SGOT 19 U/L (12-37); Bilirubin, Total 0.5 mg/dL (0.1-1.0); Blood Urea Nitrogen 11 mg/dL (8-24); Bun/Creatinine Ratio 13.6 (12.0-20.0); CO2, Blood 23 mmol/L (21-32); Calcium, Blood 8.6 mg/dL (8.5-10.1); Chloride, Blood 106 mmol/L (98-108); Creatinine, Blood 0.81 mg/dL (0.40-1.00); Globulin, Blood 3.1 g/dL (2.2-4.0); Glomerular Filtration Rate 78 (60-); Glucose, Blood 111 mg/dL (70-99); Potassium, Blood 4.4 mmol/L (3.5-5.5); Sodium, Blood 137 mmol/L (136-145); Total Protein, Blood 6.2 g/dL (6.4-8.2)
[2022-07-15 11:58] LABS: Bacteria Many /hpf; Red Blood Cells, Urine 0-2 /hpf (0-2); Squamous Epithelial Cells Rare /hpf (Few)
[2022-07-15 12:18] LABS: BASOPHILS ABSOLUTE AUTO 0.03 K/mm3 (0.00-0.23); BASOPHILS PERCENT AUTO 0 % (0-2); EOSINOPHILS ABSOLUTE AUTO 0.01 K/mm3 (0.00-0.68); EOSINOPHILS PERCENT AUTO 0 % (0-6); Hematocrit 36.3 % (33.0-51.0); Hemoglobin 11.9 g/dL (11.5-16.0); IMMATURE GRAN ABSOLUTE AUTO 0.04 K/mm3 (0.00-0.10); IMMATURE GRAN PERCENT AUTO 0 % (0-1); LYMPHOCYTES ABSOLUTE AUTO 0.67 K/mm3 (0.84-5.20); LYMPHOCYTES PERCENT AUTO 6 % (21-46); MONOCYTES PERCENT AUTO 5 % (4-13); Mean Corpuscular HGB 28.7 pg (26.0-34.0); Mean Corpuscular HGB Conc 32.8 g/dL (31.5-36.5); Mean Corpuscular Volume 88 fL (80-100); Mean Platelet Volume 10.1 fL (9.1-12.4); NEUTROPHILS ABSOLUTE AUTO 9.23 K/mm3 (1.96-9.15); NEUTROPHILS PERCENT AUTO 88 % (41-73); Platelet Count 327 K/mm3 (150-400); RDW Coefficient Variation 15.6 % (11.7-14.2); RDW Standard Deviation 50.4 fL (35.1-46.3); Red Blood Cell Count 4.15 M/mm3 (3.80-5.20); White Blood Cell Count 10.48 K/mm3 (4.00-11.30)
[2022-07-15] MEDS ORDERED: CEFD300 PO (15:38)
== END 2022-07-15 16:05 | disposition home or self-care (01) ==
LOC: ER 10:20
PROVIDERS: Emergency Medicine
DX: N39.0 Urinary tract infection, site not specified (principal); K59.00 Constipation, unspecified; E86.0 Dehydration; I10 Essential (primary) hypertension; E11.9 Type 2 diabetes mellitus without complications; Z88.8 Allergy status to other drugs, medicaments and biological substances; Z79.4 Long term (current) use of insulin; Z79.899 Other long term (current) drug therapy; Z79.82 Long term (current) use of aspirin
CPT/HCPCS: 36415; 74176; 80053; 81001; 82947; 85025; 87077; 87086; 87186; 93005; 93010; 96374; 99284-25; A9270; J0696; P9612

== ENCOUNTER → 2022-09-27 | Outpatient (CLI) | payer OTHER ==
[~2022-09-27] MED LIST changes: +CEFD300 PO
== END | disposition home or self-care (01) ==
LOC: LAB SHORT 13:31
DX: K14.6 Glossodynia (principal)
CPT/HCPCS: 87070; 87205